=== PATIENT | female | born 1980 | race Caucasian/White ===

== ENCOUNTER 2019-10-01 12:07 | Day surgery (SDC) | payer OTHER ==
[~2019-10-01] VITALS: Ht 172.7 cm; Wt 101.0 kg
[~2019-10-01 12:07] MED LIST: ACEBUTCAFT PO; ALBU90OI; ALBU90OI INH; ALBU90OI6 INH; ANXIETY MED; AZIT250 PO; BIRTH CONTROL; BUPR100 PO; BUSP5 PO; BUTASPCAF PO; CIPR500 PO; CRUTCH3 USE; CYCL10 PO; DICL25ER PO; ESTR.1TPBW TOP; ESTR2 PO; FLUO20 PO; FLUT110OIA INH; Flovent Diskus50 MCG; GABA300 PO; HYDACE5; HYDACE5 PO; IBUP800 PO; KETO10 PO; LEVSOD150 PO; LORA.5 PO; LORA1; META800 PO; NAPR500 PO; NAPR550 PO; NORT10 PO; NORT25 PO; Naprosyn500 MG PO; Norco 5-325 Ta1 EACH PO; OLAN2.5 PO; OLAN5 PO; OXYACE5T PO; OXYACE7.5T PO; PENVK500; PREN-16 PO; PROC10 PO; PROM25 PO; PSEU120ER PO; RXANTBENOT LEFTEAR; RXOXYACE PO; RXPHEN200 PO; SERT100; SULTRIDS PO; SUMA25 PO; TOPI25 PO; TRAM50 PO; [UNRECOGNIZED DRUG - OTHER]; [UNRECOGNIZED DRUG - OTHER] PO; [UNRECOGNIZED DRUG - REMARK]; [UNRECOGNIZED DRUG - REMARK]
--- NOTE | 2019-10-01 13:56 | NUR ---
10/01/19 0673 Randa Nichols ([place]illy PT UPDATED ON DELAY. PT VERBALIZES UNDERSTANDING, RESTING COMFORTABLY IN BED, CROUCHETING BLANKET. SPOUSE AT BEDSIDE, CALL LIGHT WITHIN REACH. DENIES FURTHER NEEDS AT THIS TIME.
== END 2019-10-01 15:40 | disposition home or self-care (01) ==
LOC: ORSCSDS 12:07
PROVIDERS: Otolaryngology
PROC: 0CBPXZZ Excision of Tonsils, External Approach (ICD-10-PCS; principal; 2019-10-01 13:45)
DX: G47.33 Obstructive sleep apnea (adult) (pediatric) (principal); E03.9 Hypothyroidism, unspecified; J45.909 Unspecified asthma, uncomplicated; F31.81 Bipolar II disorder; F43.10 Post-traumatic stress disorder, unspecified; Z79.899 Other long term (current) drug therapy; Z87.891 Personal history of nicotine dependence
CPT/HCPCS: 88304; J1100; J1885; J2250; J2405; J2704; J2710; J3010; J7120

== ENCOUNTER 2023-07-26 16:13 | Emergency (ER) | payer OTHER ==
[~2023-07-26] VITALS: Ht 172.7 cm; Wt 108.9 kg
[~2023-07-26 16:13] MED LIST changes: +Percocet 5-3251 EACH PO; +VENL75ER PO
[2023-07-26 16:28] VITALS: BP 122/89
== END 2023-07-26 18:00 | disposition home or self-care (01) ==
LOC: ER 16:13
DX: S93.401A Sprain of unspecified ligament of right ankle, initial encounter (principal); W54.1XXA Struck by dog, initial encounter; Z88.2 Allergy status to sulfonamides; Z88.0 Allergy status to penicillin; Z91.018 Allergy to other foods; Z79.899 Other long term (current) drug therapy; E03.9 Hypothyroidism, unspecified; J45.909 Unspecified asthma, uncomplicated; Z87.891 Personal history of nicotine dependence
CPT/HCPCS: 73590; 73610; 96372; 99283-25; A9270; J1885